=== PATIENT | female | born 1975 | race Asian ===

== ENCOUNTER 2020-07-01 06:45 | Outpatient (CLI) | payer BC | END 2020-07-01 06:46 | disposition home or self-care (01) | LOC: BICULT 06:45 | PROVIDERS: ATTEND Family Medicine | DX: R10.2 Pelvic and perineal pain (principal); N83.8 Other noninflammatory disorders of ovary, fallopian tube and broad ligament | CPT/HCPCS: 76856 ==

== ENCOUNTER 2023-11-15 15:26 | Outpatient (CLI) | payer BC | END 2023-11-15 15:27 | disposition home or self-care (01) | LOC: BICMAMMO 15:26 → MERGE 16:00 | PROVIDERS: ATTEND Family Medicine | DX: Z12.31 Encounter for screening mammogram for malignant neoplasm of breast (principal); Z80.3 Family history of malignant neoplasm of breast; Z91.89 Other specified personal risk factors, not elsewhere classified | CPT/HCPCS: 77067 ==